=== PATIENT | female | born 1995 | race Caucasian/White ===

== ENCOUNTER → 2023-01-23 | Outpatient (CLI) | payer BC ==
--- NOTE | 2023-01-23 16:19 | CONS ---
CONSULTATION REASON FOR CONSULTATION: Hypersomnia. HISTORY OF PRESENT ILLNESS: A 27-year-old obese female patient who is coming in for sleep apnea evaluation. The patient has been quite fatigued and sleepy for several years. She started having this problem at an early age. She is known to have bilateral tonsillar enlargement and she used to get recurrent tonsil infections. She has kept her tonsils in place and she was not given a tonsillectomy. At a later stage, she was given the diagnosis of attention deficit disorder. The patient was started on Adderall and she has been utilizing Adderall for several years at a dose of 20 mg p.o. daily. Adderall has helped the patient concentrate and staying alert and awake during the day. Over the years, her symptoms remained unchanged. The patient became more fatigued and sleepy. Currently, she is snoring and she has sleep fragmentation. She wakes up tired and sleepy during the day. She goes to bed around 10:30 p.m. and she wakes up at 6:30 a.m. in the morning and despite averaging around 8 to 9 hours of sleep, the patient continues to be somnolent and sleepy during the day. Capulin score is currently at 14. She has been sleeping in various body positions. She prefers to sleep on her side. She watches television in her bedroom. She has sleep fragmentation. She wakes up at least 2 to 3 times in the middle of the night and she is able to establish the sleep following her arousals without any major difficulties. No sleep paralysis. No hallucinations. No cataplexy. No history of any motor vehicle accidents because of feeling drowsy or sleepy. 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 PAST MEDICAL HISTORY: Hidradenitis suppurativa, depression, acid reflux, chronic tonsillitis with tonsillar enlargement. PAST SURGICAL HISTORY: Ear tubes. MEDICATIONS: Includes, 1. Adderall ER 20 mg p.o. daily. 2. Omeprazole 20 mg p.o. daily. 3. Prozac 80 mg p.o. daily. 4. Aldactone 50 mg p.o. daily. SOCIAL HISTORY: The patient is not smoking for now. She vapes. No history of alcoholism. No history of IV drugs. She drinks alcohol socially. She drinks a pot of coffee to keep herself stimulated. DRUG ALLERGIES: Augmentin and erythromycin. FAMILY HISTORY: Positive for bladder cancer and COPD in her father. Mother has cirrhosis of the liver. REVIEW OF SYSTEMS: A 14-point review of systems was done. The patient's positive findings are mentioned above in the history of present illness. Of significance is the absence of any significant weight gain over the past 1 year. Over the past 5 years, the patient has gained around 30 to 40 pounds. No history of any heartburn or chest pain or shortness of breath overnight. She occasionally sleep talks. No sleep walking. No nocturia. No issues with insomnia. No issues with nocturnal seizures. BP is 129/80 with a pulse of 84, respirations 16, temperature is 98.3, and saturation 98% on room air. The patient's Capulin score is 14. Body mass index is 44. Neck size is 18-3/4 of an inch. GENERAL APPEARANCE: Obese, calm, comfortable. HEAD: Atraumatic, normocephalic. NECK: Supple, There is no JVD. No goiter or neck masses. Mallampati class 4 and the patient has tonsillar enlargement bilaterally. LUNGS: Clear to auscultation. HEART: Sounds are regular rate and rhythm. Normal S1, S2. No S3 or S4. No murmurs. ABDOMEN: Soft, nontender. No organomegaly. EXTREMITIES: No edema. No cyanosis or clubbing. NEUROLOGIC: She is awake, alert. There is no focal neurological deficit. IMPRESSION: 1. Chronic hypersomnia. Capulin score of 14. High clinical suspicion of obstructive sleep apnea. 2. Loud snoring, witnessed apneas, and sleep fragmentation. 3. Bilateral tonsillar enlargement with crowding of the posterior pharynx with a Mallampati class 4. 4. Obesity with a BMI of 44. 5. History of attention deficit disorder, currently on Adderall which is also helping with daytime stimulation. 6. Hidradenitis suppurativa. 7. Acid reflux. 8. History of depression, maintained on Prozac. PLAN: Overall, clinical suspicion for obstructive sleep apnea is high. The patient is going to be given a screening polysomnography to evaluate for sleep apnea and treat accordingly. Encourage weight loss. Sleep on the side. Maintain regular sleep hygiene measures. Maintain regular sleep schedule. Continue Adderall for now. We will continue to follow and make further recommendations based on results of sleep study. MMODL / IJN: [id number] /
== END | disposition home or self-care (01) ==
LOC: 3 N SLEEP 13:55
PROVIDERS: ATTEND Internal Medicine Critical Care Medicine
DX: G47.10 Hypersomnia, unspecified (principal); R06.83 Snoring; E66.9 Obesity, unspecified; G47.8 Other sleep disorders; F98.8 Other specified behavioral and emotional disorders with onset usually occurring in childhood and adolescence; L73.2 Hidradenitis suppurativa; K21.9 Gastro-esophageal reflux disease without esophagitis; F32.A Depression, unspecified; F17.290 Nicotine dependence, other tobacco product, uncomplicated; Z68.41 Body mass index [BMI] 40.0-44.9, adult
CPT/HCPCS: 99202

== ENCOUNTER → 2023-03-16 | Outpatient (CLI) | payer BC ==
--- NOTE | 2023-03-28 04:40 | SLS ---
SLEEP STUDY STUDY PERFORMED: Home sleep study. HISTORY OF PRESENT ILLNESS: The patient is 28, presented with concerns of sleep apnea. The patient has loud snoring, witnessed apneas, and sleep fragmentation along with hypersomnia with an Cleveland score of 14. She had bilateral tonsillar enlargement. She is morbidly obese. She has history of ADD, maintained on Adderall. PERTINENT PHYSICAL FINDINGS: The patient has a weight of 285 pounds and her height is 5 feet 6 inches. TECHNICAL DESCRIPTION: The [employer] system was used to complete this home sleep study. This is a type 3 home sleep study. Total recording duration was 9 hours and 22 minutes. The study started at 11:29 p.m., ended at 8:51 a.m. This was an adequate study as the patient had more than 9 hours of flow and oxygen saturation monitoring. RESULTS: Respiratory count showed a total of 3 obstructive apneas and 270 obstructive hypopneas with an AHI of 29.8. OXYGENATION ANALYSIS: The minimum pulse ox was 57%. Average pulse ox during sleep was 94%. Time below 89% of pulse ox was 8 minutes. CARDIAC SUMMARY: Average heart rate was 79. Minimum heart rate was 60. Maximum heart rate was 112. IMPRESSION: 1. Severe obstructive sleep apnea with an AHI of 30. 2. Mild nocturnal oxygen desaturation. 3. Chronic hypersomnia. Cleveland score of 14. 4. Bilateral tonsillar enlargement. 5. Attention deficit hyperactivity disorder, maintained on Adderall. 6. History of hidradenitis suppurativa. 7. Depression. 8. Acid reflux. PLAN: Recommend CPAP therapy. The patient is going to be asked to come into the sleep center to undergo a CPAP titration and we will proceed with CPAP therapy following that. Anticipate clinical improvement while being treated with CPAP therapy. Continue Adderall for now. MMODL / IJN: [id number] /
== END ==
LOC: 3 N SLEEP 11:04
PROVIDERS: ATTEND Internal Medicine Critical Care Medicine
DX: G47.33 Obstructive sleep apnea (adult) (pediatric) (principal); G47.10 Hypersomnia, unspecified; J35.1 Hypertrophy of tonsils; F90.9 Attention-deficit hyperactivity disorder, unspecified type; L73.2 Hidradenitis suppurativa; F32.A Depression, unspecified; K21.9 Gastro-esophageal reflux disease without esophagitis; Z99.89 Dependence on other enabling machines and devices

== ENCOUNTER 2023-06-11 19:25 | Outpatient (CLI) | payer BC ==
--- NOTE | 2023-06-18 20:45 | P.PCN ---
Date of Procedure: 06/18/23 Operative Findings: CPAP titration study Date of services 06/11/2023 Pertinent history 25-year-old female patient diagnosed having obstructive sleep apnea with an AHI of 29 and the patient is coming in to the sleep center to undergo a CPAP titration. Pertinent physical findings Height is 5 feet and 6 inches, weight is 178 pounds Technical description The patient was studied using a standard complex polysomnography protocol that included recording of the 2 EKG, Central, occipital and frontal EEG, right and left outer canthus EOG, submental EMG, right and left anterior tibialis EMG, respiratory airflow by thermocouple and or pressure/flow transducer, respiratory efforts by abdominal and thoracic PVDF belts, oxygen saturation by cable oximetry. Position by observation synchronized the PSG. stepwise CPAP titration was done to limit obstructive respiratory events. Equipment used: Clerk. Sleep architecture Total time in bed is 427.5 minutes. The total sleep time is 333.0 minutes. The sleep efficiency was calculated to be at 77.9%. The latency to sleep onset was 24.5 minutes. The latency to REM sleep was 124.0 minutes. The sleep architecture was characterized by 6% stage I, 69.8% stage II, 0% stage III, and 35.1% REM sleep. The wake after sleep onset time was 69.0 minutes. The total arousal index was 3.1 Respiratory summary The CPAP titration was started initially at a pressure of 5 cm of water and the pressure was gradually increased by increments of 1 cm to reach a maximum pressure of 7 cm of water. This was a successful titration. All sleep stages were encountered. The patient was studied essentially in a sideways body position. The patient had a prolonged REM rebound. The pressure of 7 cm of water, the patient has completed ablation of the obstructive respiratory events maintaining an oxygen saturation above 90%. There was no significant nocturnal oxygen saturations pressure of the CPAP pressure of 7 cm of water. Sleep continuity summary Number of arousals were 17 with an index of 3.1. The respiratory arousal index was 0 limb movement summary No significant periodic limb movement identified. The patient had a total of 3 periodic limb movement activity with arousals with an index of 0.5 Cardiac summary The average heart rate was 78, minimum heart rate was 73 and a maximum heart rate was 83 Assessment Symptomatic obstructive sleep apnea moderate in severity with an AHI of 29. The patient underwent a successful CPAP titration. Nocturnal oxygen desaturation, recovered with CPAP therapy Chronic hypersomnia poor score of 14 Bilateral tonsillar enlargement History of attention deficit hyperactivity disorder maintained on Adderall History of hidradenitis suppurativa Chronic depression Acid reflux Plan Initiate CPAP therapy at a pressure of 7 cm of water with C-Flex of 3. The patient is going to be offered a AirFit P10 medium size nasal pillow. Encourage weight loss. Optimize sleep hygiene measures. See me in the office in 30 to 90 days to assess clinical response and compliancy. Will continue to follow.
== END 2023-06-12 05:35 ==
LOC: 3 N SLEEP 19:25
PROVIDERS: ATTEND Internal Medicine Critical Care Medicine
DX: G47.33 Obstructive sleep apnea (adult) (pediatric) (principal); G47.36 Sleep related hypoventilation in conditions classified elsewhere; G47.10 Hypersomnia, unspecified; J35.1 Hypertrophy of tonsils; F90.9 Attention-deficit hyperactivity disorder, unspecified type; F32.A Depression, unspecified; K21.9 Gastro-esophageal reflux disease without esophagitis; Z87.2 Personal history of diseases of the skin and subcutaneous tissue
CPT/HCPCS: 95811